=== PATIENT | male | born 1990 | race Caucasian/White ===

== ENCOUNTER 2017-08-15 17:31 | Emergency (ER) | payer MEDICAID, SELFPAY ==
[2017-08-15 17:32] VITALS: BP 135/78; PULSE 101; RESP 16; TEMP 37.2; O2SAT 95; BMI 32.6
--- NOTE | 2017-08-15 18:20 | ED.DCSUM_ITS ---
- ER Visit Summary Date of Service: 08/15/17 Chief Complaint: Abdominal pain History of Present Illness: The patient is a 27 M reports right lower quadrant pain today. He states he gets pain that shoots from the right groin line down to the right scrotum. Testicles not tender to palpation. Pain lasts just a few seconds at a time but keeps recurring. He denies back pain or dysuria. He has had no hematuria. He did have hernia repair at the groin as a child. Physical Examination: Vital signs are unremarkable. Patient sitting upright in bed no acute distress. Head neck examination is normal. Heart is regular rate and rhythm. Lung sounds are clear. Abdomen is soft with no focal tenderness on examination. I do not appreciate any masses or hernias. examination reveals no scrotal or testicular tenderness. No palpable masses. Test Results: CBC and chemistry studies normal. Urinalysis shows 150 blood on macroscopic examination and 0-5 RBCs on microscopic exam. CT the flank shows enlarged and diffusely fatty liver. Normal-appearing appendix is noted. There is no evidence of ureteral calculus noted. Emergency Department Course and Treatment: Patient was given Toradol, Zofran, and IV fluids. On repeat evaluation is resting comfortably. I did discuss with him that he may have passed a small kidney stone especially with blood being noted in his urine. He will be given Toradol for home. He is to return for worsening symptoms or any concerns. Treatment Plan: [] Disposition: Discharge Impression: Abdominal pain, uncertain etiology This note was generated with [employer] dictation software. It may contain incorrect words, spelling, and punctuation that were not noted in review of the chart prior to signing ED Disposition - Plan for ED Patient: Chief Complaint: Abd Pain Referrals: Care Physician,No Primary [Primary Care Provider] -
[2017-08-15] MEDS: 0.9% Normal Saline 1,000 ML 150 ML IV (18:27)
[2017-08-15] MEDS: Ketorolac 30 MG/ML Syringe IV (18:27)
[2017-08-15 18:42] LABS: Absolute Lymphocyte Count 1.44 X10^3/ul (0.83-4.51); Absolute Neutrophil Count 3.4 X10^3/uL (2.0-7.7); Basophil# 0.02 X10^3/uL; Basophil% 0.3 % (0-1); Eosinophil# 0.27 X10^3/uL; Eosinophils% 4.6 % (0-5); Hematocrit 44.6 % (40-54); Hemoglobin 15.6 g/dl (13.0-16.5); Lymphocyte # 1.44 X10^3/ul (4.0); Lymphocyte % 24.8 % (19-41); Mean Corpuscular Hgb 28.7 pg (27.0-32.0); Mean Platelet Vol. 10.2 fl (6.2-12.0); Neutrophil # 3.38 X10^3/uL (2.7-7.7); Neutrophil % 58.3 % (47-70); Platelet Count 207 K/mm3 (150-450); RBC Distribution Width CV 13.4 % (11.6-14.6); RBC Distribution Width SD 40.2 fl (35.1-43.9); Red Blood Count 5.44 M/mm3 (4.6-6.2); White Blood Count 5.8 K/mm3 (4.4-11.0)
[2017-08-15 18:43] LABS: POSITIVE COUNT NO; POSITIVE DIFFERENTIAL NO; POSITIVE MORPHOLOGY NO
[2017-08-15 18:54] LABS: Anion Gap 5 (5-15); BUN 11 mg/dL (7-18); BUN/Creat Ratio 9.6 RATIO (10-20); Calcium,Total 8.9 mg/dL (8.5-10.1); Chloride 104 mmol/L (98-107); Creatinine, Serum 1.14 mg/dL (0.70-1.30); EST Glomerular Filtration Rate 81 mL/min (>60); Est Glom Filt Rate - Afr Amer 98 mL/min (>60); Estimated Creatinine Clearance 93.33 ml/min; Glucose 102 mg/dL (74-106); Potassium 3.5 mmol/L (3.5-5.1); Sodium Level 138 mmol/L (136-145)
[2017-08-15 19:15] LABS: Bacteria 0 SEEN /hpf (None Seen); Mucous, Urine 0 SEEN /hpf (<or=2+); Squamous Epithelial Cells - UA 0 SEEN /hpf (0-5); White Blood Cells 0 SEEN /hpf (0-5)
[2017-08-15 19:18] LABS: Color, Urine Yellow (Yellow); Glucose, Dipstick Normal (Normal); Ketone-Dipstick Negative (Negative); Leukocyte Esterase-Dipstick Negative /ul (Negative); Nitrite-Dipstick Negative (Negative); Occult Blood-Urine 150 /ul (Negative); Protein-Dipstick 15 mg/dl (Negative); Specific Gravity, Urine 1.025 (1.002-1.030); Urine Bilirubin Dipstick Negative (Negative); Urine Clarity Clear (Clear); Urine Urobilinogen 1 mg/dl (Normal)
[2017-08-15 19:25] LABS: Red Blood Cells-Urine 0-5 SEEN /hpf (0-5)
--- NOTE | 2017-08-15 19:34 | CT_ITS ---
STUDY: CT ABDOMEN AND PELVIS WITHOUT CONTRAST REASON FOR EXAM: Male, 27 years old. Right lower quadrant pain radiating to right testicle RADIATION DOSAGE (If Supplied By Facility): CTDIvol = ( 12.90 ) mGy, DLP = ( 692.88 ) mGycm TECHNIQUE: Transaxial images were obtained from the dome of the diaphragm to the symphysis pubis without oral contrast, and without intravenous contrast. Sagittal and coronal images were reconstructed. Individualized dose optimization techniques were used for this CT. COMPARISON: None. FINDINGS: The visualized lung bases are unremarkable. The visualized portions of the heart are within normal limits. Liver is enlarged and fatty infiltrated. Normal gallbladder and extrahepatic biliary system. Normal spleen. Normal pancreas. Normal bilateral adrenal glands. Normal right kidney. Normal left kidney. Normal visualized stomach. Normal small intestine. Diverticular changes of the sigmoid colon without evidence for acute diverticulitis. The appendix is visualized and appears normal. Normal abdominal aorta. Normal inferior vena cava. Normal retroperitoneum. Incompletely distended mildly thick-walled bladder. Small bilateral inguinal nodes of uncertain significance Normal abdominal wall. Normal osseous structures. CT/Abdomen/Pelvis without Cont IMPRESSION: Enlarged and diffusely fatty infiltrated liver. Minor diverticular changes of the sigmoid colon without evidence for acute diverticulitis. Normal appendix. No evidence for hydronephrosis or ureteral calculus. Electronically Signed: Hay Hudson MD at 21:31 EDT , Service support ,
[2017-08-15 20:55] VITALS: BP 124/70; PULSE 77; RESP 18; O2SAT 94
--- NOTE | 2017-08-15 22:19 | ED.DEP ---
ED Disposition - Plan for ED Patient: Disposition: Home or Assisted Living Chief Complaint: Abd Pain Instructions: ED Abdominal Pain Unkn Cause Male Prescriptions: Ketorolac [Toradol] 10 mg PO Q6H PRN #14 tablet PRN Reason: Pain Referrals: Fast,Katherine, DO [NON-STAFF] - As Needed
[2017-08-15 22:23] VITALS: BP 138/88; PULSE 93; RESP 16; O2SAT 100
== END 2017-08-15 22:23 | disposition home or self-care (01) ==
PROVIDERS: Emergency Provider Emergency Medicine
DX: R10.9 Unspecified abdominal pain (principal); R19.7 Diarrhea, unspecified; Z87.891 Personal history of nicotine dependence; K76.0 Fatty (change of) liver, not elsewhere classified
CPT/HCPCS: 74176; 80048; 81001; 85025; 96361; 96374; 99283; J7030; A4216

== ENCOUNTER 2018-03-10 13:50 | Emergency (ER) | payer MEDICAID, SELFPAY ==
[2018-03-10 13:50] VITALS: BP 145/75; PULSE 88; RESP 16; TEMP 36.6; O2SAT 99; BMI 31.9
[2018-03-10 13:53] VITALS: O2SAT 98
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
--- NOTE | 2018-03-10 15:54 | NURSING ---
DR RUEDA PAGED [phone]
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
[2018-03-10 16:36] VITALS: BP 108/62; PULSE 59; RESP 16; O2SAT 98
== END 2018-03-10 16:37 | disposition home or self-care (01) ==
PROVIDERS: Emergency Provider Emergency Medicine
DX: S16.1XXA Strain of muscle, fascia and tendon at neck level, initial encounter (principal); V57.5XXA Driver of pick-up truck or van injured in collision with fixed or stationary object in traffic accident, initial encounter; Y93.9 Activity, unspecified; Y92.410 Unspecified street and highway as the place of occurrence of the external cause; Y99.9 Unspecified external cause status; Z87.891 Personal history of nicotine dependence
CPT/HCPCS: 72040; 72125; 99284

== ENCOUNTER 2018-04-01 18:46 | Emergency (ER) | payer OTHER, MEDICAID, SELFPAY ==
[2018-04-01 18:46] VITALS: BP 140/81; PULSE 94; RESP 16; TEMP 36.2; O2SAT 96; BMI 31.4
--- NOTE | 2018-04-01 20:10 | ED.VISSUMM ---
- ER Visit Summary Date of Service: 04/01/18 Chief Complaint: Laceration History of Present Illness: The patient is a 27 M with no primary care physician. He reports that just prior to coming emergency department his left forearm was cut by a sharp metal fragment at work. He is right-hand dominant. Denies any paresthesias distally. His tetanus is up-to-date. Physical Examination: Vitals: Stable. Afebrile. General: Well-nourished and well-developed. Head: Normocephalic atraumatic. Neck: Supple, no lymphadenopathy. No JVD. Nontender. Cardiovascular: Regular rate and rhythm. No murmurs. Respiratory: No respiratory distress. Clear to auscultation bilaterally. Abdominal: Soft, nontender, nondistended, normal bowel sounds. No guarding, rebound, or peritoneal signs. Back: Nontender. Extremities: 3 cm laceration to the anterior surface of his left forearm. This extends to the dermis. He is neurovascular intact distally. Skin: Normal color, no rash. Neurologic: Alert and oriented ?3. Cranial nerves II through XII are intact. Normal strength and sensation. Psych: Normal affect. Emergency Department Course and Treatment: Patient had his wound anesthetized and repaired. He tolerated well. Treatment Plan: Patient be discharged with instructions to follow-up with [facility] in 10-14 days for suture removal. Return to the emergency department for any worsening symptoms. Disposition: To home in improved and stable condition. Impression: 1. Left forearm laceration, 3 cm, repaired. Procedure note: Wound was cleansed with chlorhexidine soap. Anesthetized with 1% lidocaine without epinephrine. Copiously irrigated with normal saline. Wound was explored there is no foreign material present. It was closed with 4 simple interrupted 4-0 ethilon sutures. The patient tolerated it well. This note was generated with [employer] dictation software. It may contain incorrect words, spelling, and punctuation that were not noted in review of the chart prior to signing ED Disposition - Plan for ED Patient: Disposition: Home or Assisted Living Chief Complaint: Laceration Instructions: ED Laceration All Referrals: [facility] [GROUP OF PHYSICIANS] - 10-14 Days suture removal
[2018-04-01 20:22] VITALS: PULSE 88; RESP 16; O2SAT 100
== END 2018-04-01 20:24 | disposition home or self-care (01) ==
LOC: ED 19:22
PROVIDERS: Emergency Provider Emergency Medicine
DX: S51.812A Laceration without foreign body of left forearm, initial encounter (principal); W26.8XXA Contact with other sharp object(s), not elsewhere classified, initial encounter; Y93.9 Activity, unspecified; Y92.89 Other specified places as the place of occurrence of the external cause; Y99.0 Civilian activity done for income or pay
CPT/HCPCS: 12002; 99284